=== PATIENT | male | born 1940 | race Caucasian/White ===

== ENCOUNTER 2017-10-04 05:31 | Day surgery (SDC) | payer OTHER ==
[~2017-10-04] VITALS: Ht 182.9 cm; Wt 87.5 kg
--- NOTE | ~2017-10-04 | O ---
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 PROCEDURE: Bilateral lower lid ectropion repair with bilateral inferior punctoplasty and right transconjunctival lower lid and cheek lift. SURGEON: Flex Leal M.D. REGIONAL TRANSPORTATION MANAGER: None. ANESTHESIA: MAC. COMPLICATIONS: None. 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 He presents today for a bilateral lower lid ectropion repair with an inferior punctoplasty and a transconjunctival lower lid and cheek lift on the right side. Informed consent was obtained to include, but not limited to potential risk for loss of vision, bleeding, infection, failure to improve the problem, the potential need for further surgery or treatment. DESCRIPTION OF PROCEDURE: The patient was taken to the operating room where 2% Xylocaine with epinephrine mixed with equal parts of 0.75% Marcaine with Wydase was administered transcutaneously and transconjunctivally to each lower lid, lateral canthus and medial canthus. In addition, the right cheek and right infratemporal fossa were anesthetized with the same anesthetic mixture. The patient was subsequently prepped and draped in the usual sterile fashion. The left inferior punctum was then dilated with a double-ended punctum dilator. [address] [address] OPERATIVE REPORT Name: CHAUHANTACOS Room #: DEP [facility]..#: [id number] Admission: 10/04/17 Attend Phys: Flex Leal MD Discharge: 10/04/17 Date of : 42 Report #: [id number] It dilated well. A 1-snip punctoplasty was then performed. Attention was then turned to the right side where the same procedure was performed. The left lateral canthus was then clamped with a Bernstein clamp. A sharp canthotomy and cantholysis was then performed. Hemostasis was achieved with diligent pinpoint cautery as it was throughout the case. A tarsal strip was then prepared laterally removing the lash bearing portion of the redundant lid margin and the redundant tarsal plate. Hemostasis was then re-achieved. The tarsal strip was then resuspended from the internal portion of the lateral orbital tubercle with interrupted 5-0 Prolene sutures. The subcutaneous structures and the skin were then closed with interrupted 6-0 plain gut sutures. The right lateral canthus was then clamped with a Bernstein clamp. Sharp canthotomy and cantholysis was then performed. Hemostasis was then re-achieved. A tarsal strip was then prepared laterally removing the lash bearing portion of the redundant lid margin and the redundant tarsal plate. A transconjunctival incision was then made below the inferior border of the tarsal plate. The dissection was carried out into the pre-malar tissues. Hemostasis was then re-achieved. The lower lid and cheek were then elevated and resuspended with interrupted mattress 5-0 chromic sutures. The tarsal strip was then secured to the internal portion of the lateral orbital tubercle with interrupted 5-0 Prolene sutures. The subcutaneous structures and the skin were then closed with interrupted 6-0 plain gut sutures. The wounds were then cleaned and dressed with erythromycin ophthalmic ointment. The patient subsequently transported to the recovery area having tolerated the procedures well with no anesthetic or operative complications being noted. By: [id number] Flex Leal MD /rashad
[~2017-10-04 05:31] MED LIST: ALLOPURINOL 30300 M1 PO; ASPIRIN325 PO; ZESTORETIC 10-1 EACH PO; ZYRTEC10 M5 PO
[2017-10-04 08:03] VITALS: BP 123/72
== END 2017-10-04 09:32 | disposition home or self-care (01) ==
LOC: OR 05:31 → TBA 05:32 → OR 09:32
DX: H02.105 Unspecified ectropion of left lower eyelid (principal); H02.102 Unspecified ectropion of right lower eyelid; H04.563 Stenosis of bilateral lacrimal punctum; H02.532 Eyelid retraction right lower eyelid; H02.202 Unspecified lagophthalmos right lower eyelid; H18.9 Unspecified disorder of cornea; I10 Essential (primary) hypertension; M10.9 Gout, unspecified; Z87.891 Personal history of nicotine dependence; Z85.828 Personal history of other malignant neoplasm of skin; Z98.890 Other specified postprocedural states; Z79.899 Other long term (current) drug therapy; Z79.82 Long term (current) use of aspirin
CPT/HCPCS: 50010; 50101; 50386; 50398; 51636; 56527; 56531; 70005